=== PATIENT | female | born 1955 | race African-American/Black ===

== ENCOUNTER 2017-09-15 06:42 | Outpatient (CLI) | payer MEDICARE ==
--- NOTE | 2017-09-15 08:26 | ULT ---
RENAL ULTRASOUND: HISTORY: Chronic renal disease. FINDINGS: Real-time imaging of the right and left kidneys was performed. The right kidney measures 10.6 and th e left kidney also 10.6 cm in size. No signs of cyst, mass, or obstruction. The bladder region show s an incompletely distended bladder. Bilateral ureteral jets are identified. Exam was technically d ifficult due to body habitus. IMPRESSION: Unremarkable renal ultrasound. POS: OFF
== END 2017-09-15 06:43 | disposition home or self-care (01) ==
LOC: ULT 06:42
PROVIDERS: ATTEND Internal Medicine Nephrology
DX: I12.9 Hypertensive chronic kidney disease with stage 1 through stage 4 chronic kidney disease, or unspecified chronic kidney disease (principal); N18.2 Chronic kidney disease, stage 2 (mild); Q61.9 Cystic kidney disease, unspecified
CPT/HCPCS: 76770

== ENCOUNTER 2017-10-01 10:05 | Outpatient (CLI) | payer MEDICARE | END 2017-10-01 10:06 | disposition home or self-care (01) | LOC: BICMAMMO 10:05 | PROVIDERS: ATTEND Family Medicine | DX: Z78.0 Asymptomatic menopausal state (principal); M85.89 Other specified disorders of bone density and structure, multiple sites | CPT/HCPCS: 77080 ==

== ENCOUNTER 2017-10-10 08:22 | Outpatient (CLI) | payer MEDICARE | END 2017-10-10 08:23 | disposition home or self-care (01) | LOC: BICMAMMO 08:22 | PROVIDERS: ATTEND Family Medicine | DX: N63.20 Unspecified lump in the left breast, unspecified quadrant (principal); Z80.3 Family history of malignant neoplasm of breast | CPT/HCPCS: 76642; 77066; G0279 ==

== ENCOUNTER 2018-10-19 13:54 | Outpatient (CLI) | payer MEDICARE ==
--- NOTE | 2018-10-19 15:50 | MMO ---
Bilateral MAMMO Bilat Screen [facility]. CLINICAL HISTORY: Patient is 62 years old and is seen for screening. The patient has no family history of breast cancer. The patient has no personal history of cancer. VIEWS: The views performed were: bilateral craniocaudal with tomosynthesis and bilateral mediolateral oblique with tomosynthesis. FILMS COMPARED: The present examination has been compared to prior imaging studies performed at [facility] on 06/15/2010, 07/10/2011, 12/16/2014 and 10/10/2017. MAMMOGRAM FINDINGS: There are scattered fibroglandular densities. Benign calcifications are noted bilaterally. There are no suspicious masses, suspicious calcifications, or new areas of architectural distortion. IMPRESSION: THERE IS NO MAMMOGRAPHIC EVIDENCE OF MALIGNANCY. A ROUTINE FOLLOW-UP MAMMOGRAM IN 1 YEAR IS RECOMMENDED. THE RESULTS OF THIS EXAM WERE SENT TO THE PATIENT. ACR BI-RADS Category 2 - Benign finding MAMMOGRAPHY NOTE: 1. A negative mammogram report should not delay a biopsy if a dominant of clinically suspicious mass is present. 2. Approximately 10% to 15% of breast cancers are not detected by mammography. 3. Adenosis and dense breasts may obscure an underlying neoplasm. Reported by: ALLY RICHARDSON MD Electonically Signed: [id number]
== END 2018-10-19 13:55 | disposition home or self-care (01) ==
LOC: BICMAMMO 13:54
PROVIDERS: ATTEND Family Medicine
DX: Z12.31 Encounter for screening mammogram for malignant neoplasm of breast (principal)
CPT/HCPCS: 77063; 77067

== ENCOUNTER 2019-01-27 10:16 | Outpatient (CLI) | payer MEDICARE ==
--- NOTE | 2019-01-27 10:49 | ULT ---
Exam: Left lower extremity venous ultrasound with Doppler HISTORY: Left leg swelling. COMPARISON: None TECHNIQUE: Grayscale, color flow, Doppler imaging and spectral waveform analysis performed the left o r eccentric venous system FINDINGS: There is compressibility, presence of flow and augmentation in the common femoral vein, femoral vein and popliteal vein. Flow the greater saphenous vein and profunda femoral vein. Flow in the posterior tibial vein. IMPRESSION: No evidence of thrombus in the left lower extremity deep venous system
--- NOTE | 2019-01-27 11:23 | ULT ---
LEFT UPPER EXTREMITY VENOUS DOPPLER ULTRASOUND: HISTORY: Left arm pain TECHNIQUE: Grayscale color-flow and spectral Doppler imaging of the deep venous systems of the upper extremities was performed bilaterally. FINDINGS: There is good flow, compression and normal spectral waveforms in the left internal jugular, subclavia n, axillary, brachial, radial, ulnar, basilic and cephalic veins. IMPRESSION: No evidence of DVT in the left upper extremity.
== END 2019-01-27 10:17 | disposition home or self-care (01) ==
LOC: ULT 10:16
PROVIDERS: ATTEND Physician Assistant
DX: M79.89 Other specified soft tissue disorders (principal); M79.602 Pain in left arm; R79.1 Abnormal coagulation profile
CPT/HCPCS: 36415; 85379

== ENCOUNTER 2019-02-10 13:07 | Outpatient (CLI) | payer MEDICARE ==
--- NOTE | 2019-02-10 14:10 | ULT ---
US Arterial Doppler Lower Ext History: Lower extremity pain and edema Comparison: None. Findings: Real-time grayscale, color, and spectral analysis of the left lower extremity arterial syst em was performed. Normal triphasic waveform and peak systolic velocity within the left common femoral and proximal femo ral artery. There is a low-grade stenosis between the proximal and mid femoral artery with elevation of the systolic velocity from 63 cm/s to 100 cm/s. Distal femoral artery peak systolic [place] is normal triphasic waveform. Mild elevated peak systolic velocity with normal triphasic waveform in the posterior tibial artery. T here is diminished peak systolic velocity within the anterior tibial artery of 22.3 cm/s with biphasic waveform and spectral broadening. Dorsalis pedis peak systolic velocity is normal. Impression: 1. Mild stenosis between the proximal and mid femoral artery. 2. Mild stenosis proximal anterior tibial artery. 3. Adequate flow to the foot.
== END 2019-02-10 13:08 | disposition home or self-care (01) ==
LOC: ULT 13:07
PROVIDERS: ATTEND Physician Assistant
DX: M79.89 Other specified soft tissue disorders (principal); I70.202 Unspecified atherosclerosis of native arteries of extremities, left leg
CPT/HCPCS: 93923

== ENCOUNTER 2020-07-24 14:01 | Outpatient (CLI) | payer MEDICARE | END 2020-07-24 14:02 | disposition home or self-care (01) | LOC: BICMAMMO 14:01 | PROVIDERS: ATTEND Family Medicine | DX: Z12.31 Encounter for screening mammogram for malignant neoplasm of breast (principal); Z13.820 Encounter for screening for osteoporosis; Z80.3 Family history of malignant neoplasm of breast; Z78.0 Asymptomatic menopausal state; M85.89 Other specified disorders of bone density and structure, multiple sites | CPT/HCPCS: 77063; 77067; 77080 ==

== ENCOUNTER 2024-04-21 08:47 | Outpatient (CLI) | payer OTHER | END 2024-04-21 08:48 | disposition home or self-care (01) | LOC: BICMAMMO 08:47 | PROVIDERS: ATTEND Family Medicine | DX: Z12.31 Encounter for screening mammogram for malignant neoplasm of breast (principal); Z80.3 Family history of malignant neoplasm of breast | CPT/HCPCS: 77063; 77067 ==

== ENCOUNTER 2024-05-07 09:25 | Outpatient (CLI) | payer OTHER | END 2024-05-07 09:26 | disposition home or self-care (01) | LOC: BICMAMMO 09:25 | PROVIDERS: ATTEND Family Medicine | DX: M85.89 Other specified disorders of bone density and structure, multiple sites (principal) | CPT/HCPCS: 77080 ==